=== PATIENT | female | born 1985 | race Caucasian/White ===

== ENCOUNTER 2020-05-26 06:13 | Inpatient (IN) | payer OTHER ==
[2020-05-26] MEDS ORDERED: ePHEDrine SULFATE 50 MG/1 ML AMPULE ONE (07:30)
[2020-05-26] MEDS ORDERED: morphine SULFATE/PF 0.5 MG/ML (2cc Syringe - QUVA) ONE (07:30)
[2020-05-26] MEDS ORDERED: OXYTOCIN 10 UNITS/ML VIAL ONE (07:30)
[2020-05-26] MEDS ORDERED: PHENYLEPHRINE HCL 10 MG/1 ML SINGLE DOSE VIAL ONE (07:30)
[2020-05-26] MEDS ORDERED: ROCURONIUM BROMIDE 50 MG/5 ML VIAL ONE (07:30)
[2020-05-26] MEDS ORDERED: PROPOFOL 20 ML ONE (07:30)
[2020-05-26] MEDS ORDERED: SODIUM CHLORIDE 0.9% P/F 10 ML VIAL IJ ONE (07:30)
[2020-05-26] MEDS ORDERED: OXYTOCIN 20 UNITS in 0.9% NS 20 UNIT/1,000 ML INFUS.BAG IV ONE ×2 (08:22→14:20)
[2020-05-26] MEDS ORDERED: KETOROLAC TROMETHAMINE 30 MG/1 ML VIAL ONE (08:49)
[2020-05-26] MEDS ORDERED: ONDANSETRON 4 MG/2 ML VIAL IVPUSH PRN (09:00)
[2020-05-26 09:07] VITALS: BMI 38.0
[2020-05-26] MEDS ORDERED: ELECTROLYTE-148 SOLN 500 ML IV ONE (09:36)
[2020-05-26] MEDS ORDERED: CITRIC ACID/SODIUM CITRATE 30 ML UNIT-DOSE CUP PO ONE (09:36)
[2020-05-26] MEDS ORDERED: METHYLERGONOVINE MALEATE 0.2 MG/1 ML AMP IM PRN (09:40)
[2020-05-26] MEDS ORDERED: SENNOSIDES/DOCUSATE COMBO (SENNA PLUS) TABLET (UD) PO PRN (09:40)
[2020-05-26] MEDS ORDERED: IBUPROFEN 800 MG/8 ML IJ IVPB PRN (09:40)
[2020-05-26] MEDS ORDERED: ACETAMINOPHEN 325 MG TABLET (FP) PO PRN (09:40)
[2020-05-26] MEDS ORDERED: oxyCODONE HCL 5 MG TABLET PO PRN ×2 (09:40)
[2020-05-26] MEDS ORDERED: IBUPROFEN 600 MG TABLET (FP) PO PRN (09:40)
[2020-05-26] MEDS ORDERED: OXYTOCIN 20 UNITS in 0.9% NS 20 UNIT/1,000 ML INFUS.BAG IV SCH (09:45)
[2020-05-26] MEDS ORDERED: ELECTROLYTE-148 SOLN 1,000 ML IV SCH (09:45)
--- NOTE | 2020-05-26 09:47 | HP ---
Past Medical History - Primary Care Physician PCP:: Mathew Marie - Admission Chief Complaint: repeat lt c s History of Present Illness: same History Source: Patient Limitations to Obtaining History: No Limitations - Past Medical History ADMINISTRATIVE LIAISON: No: Alzheimer's, CVA, Dementia, Migraine, Multiple Sclerosis, Peripheral Neuropathy, Parkinson's, Seizure, Syncope, TIA, Vertigo, Other Cardiovascular: No: AFIB, Aneurysm, Aortic Insufficiency, Aortic Stenosis, CAD, CHF, Deep Vein Thrombosis, HTN, Hyperlipdemia, VA, Mitral Insufficiency, Mitral Stenosis, Murmur, Pulmonary Hypertension, Other Pulmonary: No: Asthma, Bronchitis, Cancer, COPD, O2 Dependent, Pneumonia, Previously Intubated, Pulmonary Embolus, Pulmonary Fibrosis, Sleep Apnea, Other Gastrointestinal: No: Ascites, Cancer, Constipation, Crohn's Disease, Diverticulitis, Diverticulosis, Esophageal Varices, Gastritis, GERD, GI Bleed, Hemorrhoids, Hiatal Hernia, Inflamatory Bowel Disease, Irritable Bowel Disease, Pancreatitis, Peptic Ulcer Disease, Ulcerative Colitis, Other Hepatobiliary: No: Cirrhosis, Cholelithiasis, Cholecystitis, Choledocholithiasis, Hepatitis A, Hepatitis B, Hepatitis C, Other Renal/: No: Renal Failure, Renal Inusuff, BPH, Cancer, Hematuria, Hemodialysis, Neurogenic Bladder, Renal Calculi, UTI, Other Reproductive: No: Ectopic , Endometriosis, Fibroids, PID, Polycystic Ovary Syndrome, Postmenopausal, Other ...: 4 ...Para: 2 ...Term: 2 ...: 0 ...Spon : 1 ...Induced : 0 ...Living Children: 2 ...Multiple Gestation: 0 ...EDC by Ayesha: 06/01/20 Heme/Onc: No: Anemia, B12 Deficiency, Bleeding Disorder, Cancer, Current Chemotherapy, Current Radiation Therapy, Hemochromatosis, Hypercoaguable State, Myeloproliferative Synd, Sickle Cell Disease, Sickle Cell Trait, Thrombocytopenia, Other Infectious Disease: No: AIDS, C-Diff, Herpes Zoster, HIV, MRSA, STD's, Tuberculosis, VREF, Other Psych: No: Addictions, Anxiety, Bipolar, Depression, Panic, Psychosis, Schizophrenia, Other Musculoskeletal: No: Bursitis, Chronic low back pain, Hemiparesis, Hemiplegia, Osteoarthritis, Paraplegia, Other Rheumatology: No: Fibromyalgia, Gout, Lupus, Rheumatoid Arthritis, Sarcoidosis, Vasculitis, Other ENT: No: Allergic Rhinitis, Sinusitis, Other Endocrine: No: Jose's Disease, Srikanth's Disease, Diabetes Insipidus, Diabetes Mellitus, Hyperparathyroidism, Hyperthyroidism, Hypothyroidism, Osteopenia, SIADH, Other Dermatology: No: Basal Cell, Cellulitis, Eczema, Melanoma, Psoriasis, Squamous Cell, Other - Past Surgical History Past Surgical History: Yes: Hx Myomectomy: No Hx Transabdominal Cerclage: No - Advance Directives Advance Directives: Yes: Living Will - Smoking History Smoking history: Never smoked Have you smoked in the past 12 months: No - Alcohol/Substance Use Hx Alcohol Use: No History of Substance Use: reports: None - Social History Usual Living Arrangement: Yes: With Significant Other Do you think of yourself as: Straight/Heterosexual ADL: Independent History of Recent Travel: No Home Medications - Allergies Allergies/Adverse Reactions: Allergies Allergy/AdvReac Type Severity Reaction Status Date / Time No Known Allergies Allergy Verified 05/26/20 07:54 - Home Medications Home Medications: Ambulatory Orders Vitamins (Sjr) - 1 tab PO DAILY 05/26/20 Family Medical History Family History: Denies Review of Systems - Review of Systems Constitutional: reports: No Symptoms Eyes: reports: No Symptoms HENT: reports: No Symptoms Neck: reports: No Symptoms Cardiovascular: reports: No Symptoms Respiratory: reports: No Symptoms Gastrointestinal: reports: No Symptoms Genitourinary: reports: No Symptoms Breasts: reports: No Symptoms Reported Musculoskeletal: reports: No Symptoms Integumentary: reports: No Symptoms Neurological: reports: No Symptoms Endocrine: reports: No Symptoms Hematology/Lymphatic: reports: No Symptoms Psychiatric: reports: No Symptoms Physical Exam - Maternity Vital Signs: Vital Signs Temperature 98.1 F 05/26/20 07:40 Pulse Rate 76 05/26/20 07:40 Respiratory Rate 18 05/26/20 07:40 Blood Pressure 116/73 05/26/20 07:40 O2 Sat by Pulse Oximetry (%) Constitutional: Yes: Well Nourished, No Distress, Calm Eyes: Yes: WNL, Conjunctiva Clear, EOM Intact HENT: Yes: WNL, Atraumatic, Normocephalic Neck: Yes: WNL, Supple, Trachea Midline Cardiovascular: Yes: WNL, Regular Rate and Rhythm Breast(s): Yes: WNL - Abdominal Exam/OB Fundal Height: 40 Number of Fetuses: Single Presentation: Vertex Contractions: Yes Regularity: Irregular Intensity: Mild Monitor Mode: External Heart Rate (range): 150 Heart Rate Location: [facility] Category: I Accelerations: Uniform Decelerations: None - Vaginal Exam/OB Vaginal Bleeding: No Speculum Exam: No Amniotic Membrane Status: Intact Presentation: Vertex/Position Station: -3 - Physical Exam Musculoskeletal: Yes: WNL Extremities: Yes: WNL Edema: Yes Edema: LUE: 1+, RUE: 1+, LLE: 1+, RLE: 1+ Integumentary: Yes: WNL Deep Tendon Reflex Grade: Normal +2 ...Motor Strength: WNL Psychiatric: Yes: WNL, Alert, Oriented Hemorrhage Risk Assessment - Risk Factors Medium Risk Factors: Yes: Prior , uterine surgery,or multiple laparotomies High Risk Factors: Yes: None Risk Score: 1 Risk Level: Medium Risk Assessment/Plan for repeat lt c s
--- NOTE | 2020-05-26 09:49 | OP ---
Operative Note - Note: Operative Date: 05/26/20 Pre-Operative Diagnosis: repeat lt c s Operation: repeat lt c s Post-Operative Diagnosis: Same as Pre-op Surgeon: Mathew Marie Grader Green Meat: Clay Phelan Anesthesiologist/DIAMOND SIZER: Candi Vernon Anesthesia: Spinal Estimated Blood Loss (mls): 500 (no complications ) Operative Report Dictated: Yes
--- NOTE | 2020-05-26 10:17 | OP ---
DATE OF OPERATION: 05/26/2020 PREOPERATIVE DIAGNOSIS: Repeat low transverse section. POSTOPERATIVE DIAGNOSIS: Repeat low transverse section. Cord around neck x1. Macrosomia. PROCEDURE: Repeat low transverse section. SURGEON: Mathew Marie MD RV SERVICE TECHNICIAN: TIARA St ANESTHESIOLOGIST: Candi Vernon MD ANESTHESIA: Spinal anesthesia. INDICATIONS: This is a 34-year-old female patient with previous history of low transverse section, 39 weeks . All the risks and benefits, alternatives were explained to the patient. Patient taken to OR for 39-week repeat low transverse section. DESCRIPTION OF PROCEDURE: Patient was placed on the operating table in supine position after the spinal anesthesia was obtained. The patient's abdomen and pelvis were prepped and draped in the usual sterile manner. Pfannenstiel incision was made through the skin and subcutaneous tissue until the fascia was nicked in the midline and fascia extended bilaterally. Intraperitoneal cavity was entered. No bladder flap was created because of previous , and after that, low transverse segment of uterus was entered. Baby was delivered in HU position, cord around the neck x1. Baby delivered and given to the die finisher forging after umbilical cord doubly clamped and cut. Placenta was removed, uterus closed in single layer, first layer interlocking Vicryl sutures. Good hemostasis. Both gutters cleaned. Both ovaries, fallopian tubes, and uterus were within normal limits. No complications. Tolerated the procedure well. Peritoneum was closed. Fascia was closed. Skin was closed. Both gutters were clean. Bladder draining clear urine. Blood loss about 500 mL. No complications. MD KSENIA GALARZA/[id number]
--- NOTE | 2020-05-27 08:48 | PN ---
Progress Note (short form) - Note Progress Note: Anesthesia post op note POD#1. S/P under spinal anesthesia with duramorph. VSS. Pain well controlled. Ambulating. No apparent post anesthesia complications.
[2020-05-27 08:56] LABS: BASO % 0.5 % (0-2.0); EOS % 1.1 % (0-4.5); HEMATOCRIT 32.4 % (32.4-45.2); HEMOGLOBIN 10.2 GM/dL (10.7-15.3); LYMPH % 15.5 % (8-40); MCH 25.8 pg (25.7-33.7); MCHC 31.6 g/dl (32.0-36.0); MEAN CELL VOLUME 81.9 fl (80-96); MEAN PLT VOLUME 9.6 fl (7.5-11.1); NEUT % 74.9 % (42.8-82.8); PLATELET COUNT 243 K/MM3 (134-434); RBC 3.96 M/mm3 (3.60-5.2); RDW 14.6 % (11.6-15.6); WHITE BLOOD COUNT 12.9 K/mm3 (4.0-10.0)
[2020-05-27] MEDS ORDERED: BISACODYL 10 MG SUPP.RECT RC PRN (09:40)
[2020-05-27] MEDS: SIMETHICONE 80 MG TAB.CHEW (FP) PO PRN ×2 (13:02→23:02)
[2020-05-27] MEDS: ACETAMINOPHEN 325 MG TABLET (FP) PO PRN ×2 (13:02→23:03)
[2020-05-27] MEDS: IBUPROFEN 600 MG TABLET (FP) PO PRN ×2 (13:03→23:04)
[2020-05-28] MEDS: IBUPROFEN 600 MG TABLET (FP) PO PRN (08:05)
[2020-05-28] MEDS: ACETAMINOPHEN 325 MG TABLET (FP) PO PRN (08:07)
--- NOTE | 2020-05-28 08:20 | PN ---
Post Progress Note Post Day: 2 Type of Delivery: Repeat C/S Vital Signs: Vital Signs Temperature 98.3 F 05/27/20 22:00 Pulse Rate 96 H 05/27/20 22:00 Respiratory Rate 20 05/27/20 22:00 Blood Pressure 123/64 05/27/20 22:00 O2 Sat by Pulse Oximetry (%) 100 05/26/20 11:00 Breast Exam: Yes: Soft Uterus: Yes: Fundus Firm, Fundus below umbilicus, Non-tender Incision: Yes: Dressing dry and intact, Sutures intact Abdomen/GI: Yes: Abdomen soft, Passing flatus, Tolerating PO Lochia: Yes: Serosa Lochia, amount: Small Extremities: Yes: Calves non-tender Perineum: Yes: Intact Activity: Ambulating (dc pt home today ) - Labs Labs: CBC WBC 12.9 K/mm3 (4.0-10.0) H 05/27/20 07:55 RBC 3.96 M/mm3 (3.60-5.2) 05/27/20 07:55 Hgb 10.2 GM/dL (10.7-15.3) L 05/27/20 07:55 Hct 32.4 % (32.4-45.2) 05/27/20 07:55 MCV 81.9 fl (80-96) 05/27/20 07:55 MCH 25.8 pg (25.7-33.7) 05/27/20 07:55 MCHC 31.6 g/dl (32.0-36.0) L 05/27/20 07:55 RDW 14.6 % (11.6-15.6) 05/27/20 07:55 Plt Count 243 K/MM3 (134-434) D 05/27/20 07:55 MPV 9.6 fl (7.5-11.1) 05/27/20 07:55 Absolute Neuts (auto) 9.6 K/mm3 (1.5-8.0) H 05/27/20 07:55 Neutrophils % 74.9 % (42.8-82.8) 05/27/20 07:55 Lymphocytes % 15.5 % (8-40) D 05/27/20 07:55 Monocytes % 8.0 % (3.8-10.2) 05/27/20 07:55 Eosinophils % 1.1 % (0-4.5) D 05/27/20 07:55 Basophils % 0.5 % (0-2.0) 05/27/20 07:55 Nucleated RBC % 0 % (0-0) 05/27/20 07:55
--- NOTE | 2020-05-28 08:22 | DS ---
Physical Exam-INSURANCE VERIFIER Vital Signs: Vital Signs Temperature 98.3 F 05/27/20 22:00 Pulse Rate 96 H 05/27/20 22:00 Respiratory Rate 20 05/27/20 22:00 Blood Pressure 123/64 05/27/20 22:00 O2 Sat by Pulse Oximetry (%) 100 05/26/20 11:00 Constitutional: Yes: Well Nourished, No Distress, Calm Eyes: Yes: WNL, Conjunctiva Clear, EOM Intact HENT: Yes: WNL, Atraumatic, Normocephalic Neck: Yes: WNL, Supple, Trachea Midline Cardiovascular: Yes: WNL, Regular Rate and Rhythm Respiratory: Yes: WNL, Regular, CTA Bilaterally Gastrointestinal: Yes: WNL, Normal Bowel Sounds, Soft ...Rectal Exam: Yes: WNL Renal/: Yes: WNL Pelvis: Yes: WNL External Genitalia: Yes: Normal Internal Exam Deferred: Yes Vaginal Exam: Yes: Normal Cervix: Yes: Normal Uterus: Yes: Normal ....Post : Yes: Uterus firm, Uterus non-tender Breast(s): Yes: WNL Musculoskeletal: Yes: WNL Extremities: Yes: WNL Edema: Yes Integumentary: Yes: WNL Wound/Incision: Yes: Clean/Dry, Well Approximated Neurological: Yes: WNL, Alert, Oriented ...Motor Strength: WNL Psychiatric: Yes: WNL, Alert, Oriented Labs: CBC, BMP 05/27/20 07:55 Delivery - Delivery Type of Anesthesia: Spinal Episiotomy/Laceration: None EBL (cc): 500 Delivery, Single - Stages of Labor Date of Delivery: 05/26/20 Time of Delivery: 08:48 Time Placenta Delivered: 08:49 - Condition of Infant Sap Gatherer/Solar Energy Consultant And Designer Present: Yes Name: Nevaeh Wheat Infant Gender: Male Weight: 4.366 kg Position: Left, OA Total Hours ROM (Hrs/Mins): 0hrs 2min - 1 Minute Total Score: 9 5 Minutes Total Score: 9 - [place] Feeding Plan Initial Plan: Exclusive throughout hospitalization Discharge Summary Problems reviewed: Yes Reason For Visit: SCHEDULED ADMIT Procedures: Principal: repeat c s Other Procedures: none Hospital Course: uneventful Health Concerns: none Plan of Treatment: oob Condition: Good - Instructions Diet, Activity, Other Instructions: Physical activity Resume your normal everyday activity as tolerated no heavy lifting or exercise until seen by your surgeon. You may walk unlimited poli of and climb stairs. You may resume driving the car when you feel safe and comfortable behind the wheel. No sexual activity as instructed. Wound care If you have a bandage, leave it on, and keep dry for 48-72 hours. After that ti me discard the outer bandage. If they are tapes on the skin under the out of bandage leave them in place. They will peel off in the next 7 to 10 days. Do Not Peel them off. You may shower the day after surgery. If there are tapes present on the skin, you may shower over them. Diet There are no dietary restrictions. Eat healthy, high-fiber foods. Drink 6 to 8 glasses of liquid each day. This will assist in keeping your bowels are regular. Pain management You may take Tylenol or acetaminophen or Ibuprofen (for example, Motrin, Advil etc.) from my pain prescription medication is ordered should be taken as prescribed for moderate to severe pain. Call MD for any of the following: call dr foster for 2 weeks appointment Severe pain not relieved by medication Fever of 101 or higher Excessive bleeding or drainage on dressing Inability to urinate Disposition: HOME - Home Medications Comprehensive Discharge Medication List: Ambulatory Orders Vitamins (Sjr) - 1 tab PO DAILY 05/26/20
[2020-05-28 10:37] VITALS: BP 116/72; PULSE 73; TEMP 97.8
--- NOTE | 2020-06-01 17:13 | PATH ---
Surgical Pathology Report Patient Name: SULEMAN BRUCE [facility]. Rec. 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 Electronically Signed Catherine Major M.D. Gross Description The specimen is received fresh labeled placenta and is a 607 gram, 18.5 x 17.0 x 3.0 cm. placenta with attached membranes and umbilical cord. The attached membranes are latif, translucent with focal opacities and insert marginally. The umbilical cord measures 40 cm. in length and averages 1 cm. in diameter. The cord inserts eccentrically, 3 cm. to the nearest margin. No true knots or strictures are identified. Cut surface of the umbilical cord reveals 3 vessels. The surface is sánchez-blue with minimal fibrin deposition and appropriate caliber vessels. The maternal surface is red-brown with focal defects. Sectioning reveals red-brown, spongy parenchyma. No lesions are identified. Pouch Maker sections are submitted in three cassettes as follows: 1- membrane rolls and umbilical cord; 2-3- full thickness sections of placenta. /05/29/2020 [facility]05/29/2020
== END 2020-05-28 15:30 | disposition home or self-care (01) | DRG 788 ==
LOC: JLDR 06:13 → J3W 15:15
PROVIDERS: ADMIT Obstetrics & Gynecology; ATTEND Obstetrics & Gynecology
PROC: 10D00Z1 Extraction of Products of Conception, Low, Open Approach (ICD-10-PCS; principal; 2020-05-26)
DX: O82 Encounter for cesarean delivery without indication (principal); Z3A.39 39 weeks gestation of pregnancy; O34.211 Maternal care for low transverse scar from previous cesarean delivery; O69.81X0 Labor and delivery complicated by cord around neck, without compression, not applicable or unspecified; Z37.0 Single live birth
CPT/HCPCS: 36415; 85025; 88307-TC

== ENCOUNTER 2022-12-27 06:00 | Inpatient (IN) | payer OTHER ==
[2022-12-27] MEDS ORDERED: ELECTROLYTE-148 SOLN 500 ML IV ONE ×2 (06:20→08:11)
[2022-12-27] MEDS ORDERED: CITRIC ACID/SODIUM CITRATE 30 ML UNIT-DOSE CUP PO ONE (06:20)
[2022-12-27 06:44] VITALS: BMI 40.6
[2022-12-27] MEDS ORDERED: ELECTROLYTE-148 SOLN 1,000 ML IV SCH ×2 (06:50→08:15)
[2022-12-27] MEDS ORDERED: morphine SULFATE (PF) 1 MG/2 ML SYRINGE ONE (07:59)
[2022-12-27] MEDS ORDERED: PHENYLEPHRINE HCL 10 MG/1 ML SINGLE DOSE VIAL ONE (07:59)
[2022-12-27] MEDS ORDERED: ceFAZolin SODIUM 1 GM VIAL ONE ×2 (08:33)
[2022-12-27] MEDS: OXYTOCIN 20 UNITS in 0.9% NS 20 UNIT/1,000 ML INFUS.BAG IV SCH ×2 (09:30→17:52)
[2022-12-27] MEDS ORDERED: SENNOSIDES/DOCUSATE COMBO (SENNA PLUS) TABLET (UD) PO PRN (09:43)
[2022-12-27] MEDS ORDERED: IBUPROFEN 800 MG/8 ML IJ IVPB PRN (09:43)
[2022-12-27] MEDS ORDERED: METHYLERGONOVINE MALEATE 0.2 MG/1 ML AMP IM PRN (09:43)
[2022-12-27] MEDS ORDERED: ACETAMINOPHEN 325 MG TABLET (FP) PO PRN (09:43)
[2022-12-27] MEDS ORDERED: ONDANSETRON 4 MG/2 ML VIAL IVPUSH PRN (10:22)
[2022-12-27] MEDS ORDERED: IBUPROFEN 600 MG TABLET (FP) PO PRN (10:22)
[2022-12-27] MEDS ORDERED: OXYTOCIN 20 UNITS in 0.9% NS 20 UNIT/1,000 ML INFUS.BAG IV ONE (10:43)
[2022-12-27] MEDS: PRENATAL VITAMINS W/ FOLIC ACID TABLET (FP) PO SCH (10:49)
[2022-12-27] MEDS: FERROUS SO4 325 MG TABLET (FP) PO SCH ×2 (10:49→21:05)
[2022-12-27] MEDS: SIMETHICONE 80 MG TAB.CHEW (FP) PO PRN (20:04)
[2022-12-27] MEDS ORDERED: oxyCODONE HCL 5 MG TABLET PO PRN ×2 (21:43)
[2022-12-28] MEDS: SIMETHICONE 80 MG TAB.CHEW (FP) PO PRN ×2 (05:32→13:56)
[2022-12-28 08:19] LABS: BASO % 0.2 % (0-2.0); EOS % 1.6 % (0-4.5); HEMATOCRIT 28.6 % (32.4-45.2); HEMOGLOBIN 9.6 GM/dL (10.7-15.3); LYMPH % 11.9 % (8-40); MCH 27.9 pg (25.7-33.7); MCHC 33.4 g/dl (32.0-36.0); MEAN CELL VOLUME 83.7 fl (80-96); MEAN PLT VOLUME 8.9 fl (7.5-11.1); MONO % 9.6 % (3.8-10.2); NEUT % 76.7 % (42.8-82.8); PLATELET COUNT 206 10^3/uL (134-434); RBC 3.42 M/mm3 (3.60-5.2); RDW 15.4 % (11.6-15.6); WHITE BLOOD COUNT 11.3 K/mm3 (4.0-10.0)
[2022-12-28] MEDS: PRENATAL VITAMINS W/ FOLIC ACID TABLET (FP) PO SCH (09:11)
[2022-12-28] MEDS: FERROUS SO4 325 MG TABLET (FP) PO SCH ×2 (09:11→21:07)
[2022-12-28] MEDS: OXYTOCIN 20 UNITS in 0.9% NS 20 UNIT/1,000 ML INFUS.BAG IV SCH (09:12)
[2022-12-28] MEDS ORDERED: BISACODYL 10 MG SUPP.RECT RC PRN (09:43)
[2022-12-28] MEDS: IBUPROFEN 600 MG TABLET (FP) PO PRN ×3 (12:20→22:15)
[2022-12-28] MEDS: ACETAMINOPHEN 325 MG TABLET (FP) PO PRN ×2 (13:54→20:27)
[2022-12-29] MEDS: IBUPROFEN 600 MG TABLET (FP) PO PRN (03:21)
[2022-12-29] MEDS: PRENATAL VITAMINS W/ FOLIC ACID TABLET (FP) PO SCH (09:30)
[2022-12-29] MEDS: FERROUS SO4 325 MG TABLET (FP) PO SCH (09:31)
[2022-12-29 13:24] VITALS: BP 112/67; PULSE 96; RESP 17; TEMP 98.6
== END 2022-12-29 11:30 | disposition home or self-care (01) | DRG 540 ==
LOC: JLDR 06:00 → J3W 10:50
PROVIDERS: ADMIT Obstetrics & Gynecology; ATTEND Obstetrics & Gynecology
PROC: 10D00Z1 Extraction of Products of Conception, Low, Open Approach (ICD-10-PCS; principal; 2022-12-27)
DX: O34.211 Maternal care for low transverse scar from previous cesarean delivery (principal); N85.8 Other specified noninflammatory disorders of uterus; N73.6 Female pelvic peritoneal adhesions (postinfective); Z3A.39 39 weeks gestation of pregnancy; Z37.0 Single live birth
CPT/HCPCS: 36415; 85025; 88307-TC